=== PATIENT | female | born 1955 | race Caucasian/White ===

== ENCOUNTER 2016-11-25 13:08 | Inpatient (IN) | payer OTHER ==
[~2016-11-25] VITALS: Ht 177.8 cm; Wt 77.8 kg
[2016-11-30] MEDS ORDERED: VITA100T15 PO (13:22)
[2016-11-30] MEDS ORDERED: DICL75TA PO (13:22)
--- NOTE | 2016-12-09 18:18 | MH ---
cc: NEERU MEDINA DATE OF ADMISSION 12/10/2016 ADMISSION DIAGNOSIS Osteoarthritis of the left knee. HISTORY OF THE PRESENT ILLNESS This patient is a 61-year-old female who presents for treatment of her left knee. The patient has a long history of osteoarthritis. The patient had been treated previously by Dr. Saini and then subsequently Dr. Brown. In June of 2014 she had a right total knee replacement arthroplasty using a [employer] rotating platform prosthesis. She has done well with that. She has had arthroscopic surgery for left knee in August this year. The patient continues to deteriorating pain, and Dr. Brown felt that she was a candidate for surgical treatment. The patient wanted to continue her treatment with another physician who uses [employer] products. I have been asked to see her and she now presents for surgical treatment. The patient had conservative care including oral medications, injection of cortisone, arthroscopic surgery and physical therapy. She now presents for treatment of arthritis. PAST MEDICAL HISTORY, SOCIAL HISTORY, FAMILY HISTORY AND REVIEW OF SYMPTOMS See attached notes. PHYSICAL EXAMINATION VITAL SIGNS: 5 feet 10 inches, 155 pounds, BMI 22.2, blood pressure 122/76. HEENT: Normocephalic, atraumatic. Pupils equal, round, reactive to light and accommodation. Extraocular motions intact. NECK: Supple. CHEST: Clear. HEART: Regular rate and rhythm. ABDOMEN: Soft, nontender, normoactive bowel sounds. MUSCULOSKELETAL: Left knee varus deformity. There is a moderate knee effusion. Tenderness is seen medial and lateral joint lines. Range of motion extension 0, flexion 130 degrees. The contralateral right knee has a well healed incision. No pain with range of motion. Flexion is limited to 120 degrees. IMPRESSION Osteoarthritis left knee. PLAN Left total knee replacement arthroplasty. CONSENT The risks of surgery including infection, bleeding, loss of motion, continued pain, need for further surgery, neurologic and vascular injury. The patient understands these issues and wishes to press on with surgery as outlined above. MD JUSTINA Hummel/KK /5:56 PM /6:00 PM
[2016-12-10] MEDS ORDERED: SODIUM CHLORID 0.9% 500 ML IV PRN (07:45)
[2016-12-10] MEDS ORDERED: METOPROLOL TARTRATE 25 MG TAB PO PRN (07:45)
[2016-12-10] MEDS ORDERED: EXPAREL PERI-ARTICULAR INJECTION (TOTAL VOL. 60 ML) P-ARTICULR SCH ×2 (07:45)
[2016-12-10] MEDS ORDERED: POVIDONE IODINE 7.5% SCRUB 118 ML BOTTLE TOPICAL SCH (07:45)
[2016-12-10] MEDS ORDERED: POVIDONE IODINE 5% (ANTISEPSIS KIT) 4 APPLICATIONS EACH NARE PRN (07:45)
[2016-12-10] MEDS ORDERED: ceFAZolin 2 GM PREMIX 50 ML IV SCH (07:45)
[2016-12-10] MEDS ORDERED: CHLORHEXIDINE GLUCONATE 2 % 1 PACK (2 CLOTHS) TOPICAL PRN (07:45)
[2016-12-10] MEDS ORDERED: INSULIN HUMAN REGULAR 1,000 UNITS/10 ML VIAL SQ PRN (07:45)
[2016-12-10] MEDS ORDERED: LACTATED RINGER'S 1000 ML IV PRN (07:45)
[2016-12-10] MEDS ORDERED: TRANEXAMIC ACID INJ 718 MG in SODIUM CHLORIDE 0.9% INJ 100 ML IV SCH (07:45)
[2016-12-10 08:10] VITALS: BP 112/84; PULSE 72; RESP 18; TEMP 98.2; O2SAT 96
[2016-12-10] MEDS ORDERED: MIDAZOLAM HCL 2 MG/2 ML VIAL ONE (09:06)
[2016-12-10] MEDS ORDERED: FAMOTIDINE 20 MG/2 ML VIAL ONE (09:06)
[2016-12-10] MEDS ORDERED: BUPIVACAINE HCL PF 0.25% 30 ML VIAL NERV BLOCK ONE (09:30)
[2016-12-10] MEDS ORDERED: BUPIVACAINE LIPOSOME PF 1.3% 20 ML VIAL ONE (09:31)
[2016-12-10] MEDS ORDERED: DEXAMETHASONE SOD PHOS PF 10 MG/ML VIAL IV ONE (09:31)
[2016-12-10] MEDS ORDERED: GENTAMICIN SULFATE 80 MG/2 ML VIAL IRRIGATION ONE (10:21)
[2016-12-10] MEDS ORDERED: LACTATED RINGER'S 1000 ML INJ 1,000 ML IV SCH (11:42)
[2016-12-10] MEDS ORDERED: MISCELLANEOUS PHARMACY INFORMATION XX ONE (11:45)
[2016-12-10] MEDS ORDERED: SODIUM CHLORIDE 0.9% FLUSH 5 ML FLUSH IVF PRN (11:45)
[2016-12-10] MEDS ORDERED: MISCELLANEOUS NURSING INFORMATION XX PRN (11:45)
[2016-12-10] MEDS ORDERED: TEMAZEPAM 15 MG CAP PO PRN (11:45)
[2016-12-10] MEDS ORDERED: NALOXONE HCL 0.4 MG/ML AMP IV PRN (11:45)
[2016-12-10] MEDS ORDERED: MORPHINE SULFATE 30 MG/30 ML PCA IV SCH (11:45)
[2016-12-10] MEDS ORDERED: MORPHINE SULFATE 8 MG/ML INJ IM PRN (11:45)
[2016-12-10] MEDS ORDERED: OXYC-392 PO (11:50)
[2016-12-10] MEDS ORDERED: XARE10TA PO (11:50)
--- NOTE | 2016-12-10 11:53 | PD.OP ---
Operative Report Date of Surgery: Dec 10, 2016 Preoperative Diagnosis: Osteoarthritis left knee, primary Postoperative Diagnosis: Same Procedure: Left total knee replacement arthroplasty, rotating platform Anesthesia: Gen. with adductor canal block Surgeon: Lawrence Choe Cane Weigher Helper(s): JORGE LUIS Duenas Operation and Findings: EBL: 100 cc INDICATION: This patient presents with long-standing arthritis of the knee. Attachment record documents conservative measures. The patient now presents for surgical treatment. NOTE: Soumya Duenas PA-C was present for the entire surgical procedure as my prosthetic assistant. In my medical opinion her skill and care was necessary for proper management of this patient. TOURNIQUET TIME: 61 minutes COMPANY: [employer] FEMUR: Size 4 narrow left, cruciate retaining TIBIA: Size 3, rotating platform PATELLA: 38 mm POLYETHYLENE INSERT: 10.5mm rotating platform, curved PROCEDURE: This patient was brought the operating room and anesthetized in the supine position. The patient was positioned supine on the table. The tourniquet was placed about the thigh, and the leg was scrubbed with alcohol followed by Hibiclens followed by ChloraPrep and draped sterilely. A timeout was done, and antibiotics were given. After exsanguination the tourniquet was inflated to 225 mmHg. An anterior incision was made and a median parapatellar arthrotomy was performed. The patella was released laterally and subluxed allowing freehand cut of the patella which was then sized. A metal cap was placed over the exposed patellar surface for protection. A supervising airplane pilot hole was placed in the distal femur allowing a 4 valgus cut removing 9 mm from the distal femur. Anterior posterior and chamfer cuts were made. The posterior stabilize osteotomy was made. The attention was directed to the tibia. Retractors were positioned. The external alignment guide was used allowing the lateral tibia to be used as referencing guide and cut utilizing an oscillating saw taking care to avoid any injury to the surrounding soft tissues. This was sized properly. Trial reduction showed that the insert fit nicely. The patient had range of motion extension 0 flexion 120. A medial release is not necessary. The bony surfaces prepared. On the back table 2 packets of methylmethacrylate were mixed. The components were cemented. Excess cement was removed. The tourniquet let down and hemostasis was controlled. The final plastic insert was inserted. Range of motion was the same as previously noted. A drain was brought through a separate stab incision. The arthrotomy was repaired with interrupted #1 Vicryl suture, subcutaneous tissue 2-0 Vicryl suture and skin with metallic charan A sterile dressing was applied. Sponge counts, needle counts and instrument counts were all correct. The patient tolerated procedure well and was taken to recovery in satisfactory condition. FINDINGS: There was evidence of severe arthritis with a hypoplastic lateral femoral condyle. The final solution was excellent. The patient was well balanced and had excellent range of motion without complication. Lawrence Choe MD Dec 10, 2016 11:53
[2016-12-10] MEDS ORDERED: LACTATED RINGER'S 1000 ML INJ 1,000 ML IV ONE (12:00)
[2016-12-10] MEDS ORDERED: ONDANSETRON HCL 4 MG/2 ML VIAL IV PUSH ONE (12:00)
[2016-12-10] MEDS ORDERED: NEOSTIGMINE 3 MG/3 ML SYR IV ONE (12:00)
[2016-12-10] MEDS ORDERED: PROPOFOL 200 MG/20 ML AMP IV ONE (12:00)
[2016-12-10] MEDS ORDERED: *morphine SULFATE 8 MG/ML PERIprocedure ONLY ONE ×3 (12:16→12:33)
[2016-12-10] MEDS ORDERED: fentaNYL CITRATE 250 MCG/5 ML AMP ONE (12:18)
[2016-12-10] MEDS ORDERED: DO NOT ADM ANY ANTICOAGULANT DRUGS PRN (12:30)
[2016-12-10] MEDS ORDERED: Post-op Orders (for Pharmacy) MISC XX ONE (12:30)
[2016-12-10] MEDS ORDERED: *HYDROmorphone PF 1 MG VIAL PERIprocedural Use ONLY ONE ×2 (12:44→13:37)
--- NOTE | 2016-12-10 12:48 | RADRPT ---
EXAM DATE/TIME: 12/10/2016 12:15 [facility] COMPARISON: No previous studies available for comparison. INDICATIONS : Post op left knee MEDICAL HISTORY : None. SURGICAL HISTORY : None. ENCOUNTER: Initial ACUITY: 1 day PAIN SCORE: 0/10 LOCATION: Left knee FINDINGS: AP and lateral views of the left knee demonstrate changes consistent with recent total knee arthropla sty with metallic hardware in place in the distal femur and proximal tibia. There is a radiolucent pa tellar component. Skin charan are present anteriorly. There is soft tissue gas present, as expected. A surgical drain is in place. CONCLUSION: Expected changes following recent left total knee arthroplasty. Prince John MD on December 10, 2016 at 12:46 Board Certified Radiologist. This report was verified electronically.
[2016-12-10] MEDS: PCA - TOTAL MG MORPHINE DELIVERED PER SHIFT SCH ×2 (14:00→20:41)
[2016-12-10 15:23] VITALS: BP 142/80; PULSE 76; RESP 17; TEMP 96.3; O2SAT 99
[2016-12-10 20:05] VITALS: BP 130/80; PULSE 82; RESP 17; TEMP 96.8; O2SAT 98
[2016-12-10] MEDS: SODIUM CHLORIDE 0.9% FLUSH 5 ML FLUSH IVF SCH (20:41)
[2016-12-10] MEDS: MAGNESIUM HYDROXIDE SUSP 30 ML CUP PO SCH (20:41)
[2016-12-10] MEDS: SENNOSIDES 8.6 MG TAB PO SCH (20:41)
[2016-12-11] VITALS (8 sets, daily range): BP systolic 111–151; BP diastolic 63–78; PULSE 70–88; RESP 16–17; TEMP 96.3–98.7; O2SAT 97–100
[2016-12-11 04:12] LABS: HEMATOCRIT 32.7 % (35.0-46.0); REVIEW FLAG FINAL
[2016-12-11] MEDS: PCA - TOTAL MG MORPHINE DELIVERED PER SHIFT SCH (06:00)
--- NOTE | 2016-12-11 07:51 | PD.ORT.PN ---
Subjective Subjective Remarks Patient feels comfortable. Lying in bed. Was ambulating late yesterday and this morning. No complaints Objective Vitals Vital Signs Date Time Temp Pulse Resp B/P Pulse Ox O2 Delivery O2 Flow Rate FiO2 12/11/16 06:00 15 12/11/16 04:00 98.3 86 17 112/67 97 12/11/16 00:00 97.1 88 17 111/66 99 12/10/16 20:41 15 12/10/16 20:05 96.8 82 17 130/80 98 12/10/16 15:23 96.3 76 17 142/80 99 12/10/16 15:00 77 14 127/79 100 Nasal Cannula 2 12/10/16 13:30 97.2 74 14 132/69 100 Nasal Cannula 2 12/10/16 13:15 72 14 126/68 100 Nasal Cannula 2 12/10/16 13:05 14 12/10/16 13:00 74 14 128/77 100 Nasal Cannula 2 12/10/16 12:45 75 12 142/74 98 Nasal Cannula 2 12/10/16 12:30 72 12 146/77 99 Nasal Cannula 2 12/10/16 12:12 97.4 71 18 150/85 99 Nasal Cannula 2 12/10/16 08:10 98.2 72 18 112/84 96 I/O 12/10/16 12/10/16 12/10/16 12/11/16 12/11/16 12/11/16 07:00 15:00 23:00 07:00 15:00 23:00 Intake Total 1500 ml 480 ml 240 ml Output Total 650 ml 1490 ml 910 ml Balance 850 ml -1010 ml -670 ml Intake Oral 480 ml 240 ml IV Total 200 ml Other 1300 ml Output Urine Total 350 ml 1150 ml 850 ml Drainage Total 200 ml 340 ml 60 ml Estimated Blood Loss 100 ml # Bowel Movements 0 0 Result Diagram: 12/11/16 0342 Objective Remarks Dressing dry. Hemovac drain putting out much. X-ray looks fine. No calf tenderness or abnormal swelling. Sensation normal. Motor examination normal Assessment & Plan Ortho Post Op Day #: 1 Problem List: Assessment and Plan Osteoarthritis left knee area Valgus for the left knee. Left TKA: POD #1. 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
[2016-12-11] MEDS: MAGNESIUM HYDROXIDE SUSP 30 ML CUP PO SCH ×2 (07:52→20:59)
[2016-12-11] MEDS ORDERED: CPMMACHINE (07:57)
--- NOTE | 2016-12-11 07:57 | HHI.DCPOC ---
Discharge Care Plan Diagnosis: (1) Left knee pain (2) Osteoarthritis of left knee Your Health Problems Are: Incision/Drains Inflammation Swelling Goals to Promote Your Health * To prevent worsening of your condition and complications * To maintain your health at the optimal level Directions to Meet Your Goals Take your medications as prescribed Follow your dietary instruction Follow activity as directed Keep your appointments as scheduled Take your immunizations and boosters as scheduled If your symptoms worsen call your PCP, if no PCP go to Urgent Care Center or Emergency Room Smoking is Dangerous to Your Health. Avoid second hand smoke Call the 24-hour hour crisis hotline for domestic abuse at Sydni Heredia Dec 11, 2016 07:57
--- NOTE | 2016-12-11 08:00 | HHI.DS ---
Discharge Summary Admission Date Dec 10, 2016 at 07:12 Discharge Date: Dec 12, 2016 Admitting Diagnosis see below Diagnosis: (1) Left knee pain Diagnosis: Principal (2) Osteoarthritis of left knee Diagnosis: Principal Procedures Left total knee arthroplasty Brief History This is a 61 year old female patient with a history of bilateral knee pain. She was treated previously by Dr. Saini and eventually underwent right total knee arthroplasty. She did very well. He then directed care towards her left knee. Conservative measures were pursued including injections and medications. She continued to decline. Surgical treatment was discussed and she elected to move forward with left total knee arthroplasty. CBC/BMP: 12/11/16 0342 Significant Findings Laboratory Tests Test 12/11/16 03:42 Hemoglobin 11.0 GM/DL (11.6-15.3) Hematocrit 32.7 % (35.0-46.0) PE at Discharge Dressing dry. Hemovac drain putting out much. X-ray looks fine. No calf tenderness or abnormal swelling. Sensation normal. Motor examination normal Hospital Course Surgical treatment was performed on the day of admission. She recovered well in PACU and was transferred to the orthopaedic floor. Pain was controlled with IV and oral medications. DVT prophylaxis was initiated pod#1. She was compliant with physical therapy. After 2 days days she was found to be stable and discharged home with home health care. She was instructed to continue her xarelto for 15 days, continue therapy and to ambulate regularly, and to pursue a high fiber diet for 5 days. Pt Condition on Discharge: Stable Discharge Disposition: Disch w/ Home Health Serv Discharge Instructions Diet Instructions: As Tolerated, No Restrictions, High Fiber Diet Activities You Can Perform: Weight Bearing as Jesús Activities to Avoid: Strenuous Activity Additional Activity Instruc.: TKA protocol New Medications: CPM-Continuous Passive Motion Machine (CPM-Continuous Passive Motion Machine) 1 Ea Device 1 EA .ROUTE DIRECTED #1 Ref 0 EA Oxycodone (Oxycodone) 5 Mg Tab 5 MG PO Q4H PRN PAIN #50 Ref 0 TAB Rivaroxaban (Xarelto) 10 Mg Tab 10 MG PO DAILY PRN Prevent Blood Clot #15 Ref 0 TAB Continued Medications: Cyanocobalamin (Vitamin B12) 100 Mcg Tab Unknown Dose PO DAILY #1 BOTTLE Discontinued Medications: Diclofenac Sodium DR (Diclofenac Sodium DR) 75 Mg Tabdr 75 MG PO DAILY #60 Ref 0 TAB Sydni Heredia Dec 11, 2016 08:00
--- NOTE | 2016-12-11 08:01 | HHI.FF ---
Face to Face Verification Diagnosis: (1) Left knee pain (2) Osteoarthritis of left knee Physical Therapy Gait training, Safety evaluation, Transfer training, bed to chair Knee: Total knee, Protocol: Left, Full weight bearing Canvas Knee Splint: When in bed & 2 pillows btw thighs Additional Instructions PT 4 days/wk for 2 weeks. WBAT LLE. TKA protocol. CPM bid as tolerated, 0-60 with goal of 100 flexion. Nursing RN Days per Week: 2 x Week(s): 1 Dressing Changes: Do not change dressing Additional Instructions Vitals assessment. Dressing assessment - do not change unless saturated. Keep dry (ok to shower pod#4-5 but keep sealed). I have seen patient Aurora Ken on 12/11/16. My clinical findings support the need for the requested home health care services because: Limited ability to care for self High risk of falls I certify that my clinical findings support that this patient is homebound because: Post-op weakness Unsteady gait/balance Sydni Heredia Dec 11, 2016 08:01
[2016-12-11] MEDS: SODIUM CHLORIDE 0.9% FLUSH 5 ML FLUSH IVF SCH ×2 (09:00→21:00)
[2016-12-11] MEDS: oxyCODONE/ACETAMINOPHEN 5 MG/325 MG TAB PO PRN ×3 (11:11→20:59)
[2016-12-11] MEDS: RIVAROXABAN 10 MG TAB PO SCH (11:11)
[2016-12-11] MEDS ORDERED: MENTHOL LOZENGE BUCCAL PRN (15:00)
[2016-12-11] MEDS: SENNOSIDES 8.6 MG TAB PO SCH (21:01)
[2016-12-12 00:25] VITALS: BP 124/73; PULSE 90; RESP 17; TEMP 98.5; O2SAT 98
[2016-12-12] MEDS: oxyCODONE/ACETAMINOPHEN 5 MG/325 MG TAB PO PRN ×3 (00:53→08:57)
--- NOTE | 2016-12-12 06:54 | PD.ORT.PN ---
Subjective Subjective Remarks pt progressing well, no complaints, ready to be discharged home today Objective Vitals Vital Signs Date Time Temp Pulse Resp B/P Pulse Ox O2 Delivery O2 Flow Rate FiO2 12/12/16 00:25 98.5 90 17 124/73 98 12/11/16 20:00 98.7 85 17 151/78 99 12/11/16 18:27 99 21 12/11/16 16:00 97.6 86 16 135/76 98 12/11/16 12:00 96.3 75 16 139/69 100 12/11/16 10:22 98.4 86 16 115/69 100 12/11/16 10:20 99 I/O 12/11/16 12/11/16 12/11/16 12/12/16 12/12/16 12/12/16 07:00 15:00 23:00 07:00 15:00 23:00 Intake Total 240 ml 600 ml 720 ml Output Total 910 ml Balance -670 ml 600 ml 720 ml Intake Oral 240 ml 600 ml 720 ml Output Urine Total 850 ml Drainage Total 60 ml # Voids 4 2 # Bowel Movements 0 0 0 Result Diagram: 12/11/16 0342 Procedures Left total knee arthroplasty Objective Remarks seen by Dr. Price Choe left knee dressing clean and dry no calf tenderness, negative homans sign Motor examination normal Assessment & Plan Problem List: (1) Left knee pain (2) Osteoarthritis of left knee Assessment and Plan Osteoarthritis left knee area Valgus for the left knee. Left TKA: POD #2. PLAN: Xarelto for 15 days Oxycodone for pain Weightbearing as tolerated No dressing change Discharge to home today with [facility], orthopedically stable Follow-up in 2 weeks Cathy Kyle Dec 12, 2016 06:54
[2016-12-12 08:00] VITALS: BP 106/61; PULSE 80; RESP 18; TEMP 98; O2SAT 95
[2016-12-12] MEDS: MAGNESIUM HYDROXIDE SUSP 30 ML CUP PO SCH (08:55)
[2016-12-12] MEDS: SODIUM CHLORIDE 0.9% FLUSH 5 ML FLUSH IVF SCH (08:56)
[2016-12-12 09:07] VITALS: O2SAT 96
[2016-12-12] MEDS: RIVAROXABAN 10 MG TAB PO SCH (11:41)
== END 2016-12-12 12:21 | disposition home health service (06) | DRG 470 ==
LOC: HSDI 12-10 07:12 → N06A 12-10 15:12
PROVIDERS: ADMIT Orthopaedic Surgery Orthopaedic Surgery of the Spine; ATTEND Orthopaedic Surgery Orthopaedic Surgery of the Spine
PROC: 0SRD0J9 Replacement of Left Knee Joint with Synthetic Substitute, Cemented, Open Approach (ICD-10-PCS; principal; 2016-12-10 09:31)
DX: M17.12 Unilateral primary osteoarthritis, left knee (principal); Z96.651 Presence of right artificial knee joint
CPT/HCPCS: 73560; 85014; 85018; 86850; 86900; 86901; 86920; 94150; C1776; C9290; J0690; J1100; J1170; J1580; J2250; J2270; J2405; J2710; J3010; J7120; L1830

== ENCOUNTER → 2016-11-30 | Outpatient (CLI) | payer OTHER ==
[~2016-11-30] MED LIST: CPMMACHINE; DICL75TA PO; GLUC250C5 PO; OXYC-392 PO; PERC5TAB12 PO; RIVA15 PO; VITA100T15 PO; WALKER ROLLING; XARE10TA PO; Z.0.COMMODE-3:1; Z.0.CPM
[2016-11-30 09:43] LABS: BASOPHIL % 0.6 % (0.0-2.0); EOSINOPHIL # 0.1 TH/MM3 (0-0.4); EOSINOPHIL % 2.8 % (0.0-4.0); HEMATOCRIT 41.3 % (35.0-46.0); HEMO FLAGS DIFF FINAL; LYMPHOCYTE # 1.7 TH/MM3 (1.0-4.8); MEAN CELL VOLUME 93.3 FL (80.0-100.0); MEAN CORPUSCULAR HEMOGLOBIN 31.6 PG (27.0-34.0); MEAN CORPUSCULAR HGB CONC 33.9 % (32.0-36.0); MONO % 9.1 % (0.0-8.0); NEUT % 47.5 % (16.0-70.0); PLATELET COUNT 206 TH/MM3 (150-450); RED BLOOD COUNT 4.43 MIL/MM3 (4.00-5.30); RED CELL DISTRIBUTION WIDTH 13.2 % (11.6-17.2); WHITE BLOOD COUNT 4.2 TH/MM3 (4.0-11.0)
[2016-11-30 09:52] LABS: BLOOD, URINE TRACE (NEG); COMMENT (UR) CATH-CULT NOT IND; CULTURE IF INDICATED CATH CULTURE NOT IND; GLUCOSE,URINE NEG (NEG); KETONE, URINE NEG (NEG); MUCUS URINE FEW /lpf (OCC); NITRITE,URINE NEG (NEG); PH, URINE 5.5 (5.0-8.5); SQUAMOUS EPITHELIAL CELL URINE <1 /hpf (0-5); URINE COLOR YELLOW (YELLW/STRAW)
[2016-11-30 09:52] LABS: APTT (PATIENT) 25.2 SEC (24.3-30.1); INTERNATIONAL NORMALIZED RATIO 0.9 RATIO; PROTHROMBIN TIME - PATIENT 10.1 SEC (9.8-11.6)
[2016-11-30 10:01] LABS: WESTERGREN SEDIMENTATION RATE 6 mm/hr (0-30)
[2016-11-30 10:11] LABS: BICARBONATE 30.7 MEQ/L (21.0-32.0); POTASSIUM 3.9 MEQ/L (3.5-5.1)
--- NOTE | 2016-12-01 15:23 | EKG ---
Date Performed: 11/30/2016 Time Performed: 08:26:20 PTAGE: 61 years EKG: Sinus rhythm POSSIBLE LEFT ATRIAL ENLARGEMENT BORDERLINE ECG Compared to prior tracing no significant change PREVIOUS TRACING 05/28/2014 09.21.06 DOCTOR: Gary Bonilla Interpretating Date/Time 12/01/2016 15:22:04
== END ==
LOC: CPRE 08:01
PROVIDERS: ATTEND Orthopaedic Surgery Orthopaedic Surgery of the Spine
DX: Z01.810 Encounter for preprocedural cardiovascular examination (principal); Z01.812 Encounter for preprocedural laboratory examination; M17.11 Unilateral primary osteoarthritis, right knee; Z79.01 Long term (current) use of anticoagulants; R94.31 Abnormal electrocardiogram [ECG] [EKG]
CPT/HCPCS: 36415; 80048; 81001; 85025; 85610; 85652; 85730; 93005